=== PATIENT | female | born 2005 | race Caucasian/White ===

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

== ENCOUNTER 2025-02-08 16:10 | Emergency (ER) | payer OTHER, SELFPAY ==
--- NOTE | ~2025-02-08 | CT_ITS ---
CT abdomen pelvis w con Ordering provider: Zbigniew Funez III, DO History: 19 years Female with . epigastric pain . Comparison: June 25, 2022. Technique: CT abdomen and pelvis with IV and without oral contrast. Automated exposure control and it erative reconstruction technique were employed. The dose-length product was 895.82 mGy-cm. 100 mL Omn ipaque 350 was given IV. Findings: VISUALIZED LOWER CHEST: Normal. UPPER ABDOMINAL ORGANS: Liver: Normal. Gallbladder: Normal. Spleen: Normal. Stomach/duodenum: Normal. Pancreas: Slightly bulky body and tail of pancreas. Evaluation for pancreatitis is advised. Adrenals: Normal. Kidneys: Hypodensity in the right kidney upper pole most likely tiny cyst. Follow-up advised. PELVIC ORGANS: The bladder is underfilled. Retroverted uterus. BOWEL AND MESENTERY: Colon: No evidence of diverticulitis.. Normal appendix. Small Bowel: Normal. No obstruction. Peritoneum/mesentery: No free air or free fluid. Mesenteric lymph nodes with the largest measures 1.9 cm. RETROPERITONEUM: Normal aorta. No retroperitoneal lymphadenopathy. MUSCULOSKELETAL: Superficial soft tissues: Small fat-containing umbilical hernia. Otherwise, The superficial soft tiss ues are normal. Bones: Levoscoliosis. Otherwise, Normal spine. IMPRESSION: 1. No evidence of appendicitis, diverticulitis or intestinal obstruction. 2. Slightly prominent body and tail of the pancreas. Evaluation for pancreatitis advised. 3. Levoscoliosis. 4. Mesenteric lymphadenopathy. Reviewed, dictated and finalized at location A. IMPRESSION: 1. No evidence of appendicitis, diverticulitis or intestinal obstruction. 2. Slightly prominent body and tail of the pancreas. Evaluation for pancreatit is advised. 3. Levoscoliosis. 4. Mesenteric lymphadenopathy.
[2025-02-08 16:16] VITALS: BP 146/90; PULSE 85; RESP 16; TEMP 37; O2SAT 100
[2025-02-08 16:47] LABS: BEDSIDEPREGUCG Negative (Negative)
[2025-02-08 16:50] LABS: Basophils Percent Auto 0.3 % (0.2-1.2); Eosinophils Absolute Auto 0.1 K/mm3 (0-0.3); Eosinophils Percent Auto 1.7 % (0-4.4); Hematocrit 43.4 % (37.0-47.0); Hemoglobin 13.9 g/dL (12.0-15.0); Immature Granulocyte Absolute 0.02 K/mm3 (0.00-0.031); Immature Granulocyte Percent A 0.3 % (0-0.5); Lymphocytes Absolute Auto 1.74 K/mm3 (0.9-3.2); Lymphocytes Percent Auto 24.8 % (18.3-44.2); Mean Corpuscular Hemoglobin 28.5 pg (26-34); Mean Corpuscular Volume 88.9 fl (80-100); Mean Platelet Volume 9.3 fl (7.4-10.4); Monocytes Absolute Auto 0.7 K/mm3 (0.1-0.6); Monocytes Percent Auto 9.8 % (2.6-8.5); Neutrophils Absolute Auto 4.4 K/mm3 (1.3-6.7); Neutrophils Percent Auto 63.1 % (45.5-73.1); Platelet Count Result 359 k/mm3 (150-375); Red Blood Count 4.88 M/mm3 (4.2-5.4); Red Cell Distribution Width 13.3 % (11.5-14.5)
[2025-02-08 16:53] LABS: Add Urine Microscopic? NO; Appearance Urine Clear (Clear); Bilirubin Urine Negative (Negative); Blood Urine Negative (Negative); Color Urine Yellow (Yellow); Glucose Urine UA Negative (Negative); Ketones Urine Negative (Negative); Leukocyte Esterase Ur Negative LEU/UL (Negative); Nitrate Urine Negative (Negative); Protein Urine Negative (Negative); Specific Grav Ur 1.024 (1.001-1.035); Urobilinogen Urine 0.2 mg/dL (<2.0); pH Urine 5.5 (5.0-9.0)
[2025-02-08 17:00] LABS: Alanine Aminotransferase 15 U/L (6-35); Albumin Level 4.2 g/dL (3.7-5.6); Alkaline Phosphatase 149 U/L (45-116); Anion Gap 11 mmol/L (4-12); Aspartate Amino Transferase 25 U/L (14-36); Bilirubin,Total 0.3 mg/dL (0.2-1.3); Blood Urea Nitrogen 8 mg/dL (8-21); Calcium 9.5 mg/dL (8.9-10.7); Carbon Dioxide 20 mmol/L (22-30); Chloride 107 mmol/L (98-107); Estimated CRCL calculation 109 ml/min; Estimated Glomerular Filt Rate > 60; Glucose 120 mg/dL (65-110); Lipase 87 U/L (23-300); Potassium 4.1 mmol/L (3.4-5.0); Sodium 138 mmol/L (134-143); Total Protein 7.9 g/dL (6.3-8.6)
--- NOTE | 2025-02-08 17:10 | ED_ITS ---
HPI - Abdominal Pain General Chief Complaint: Abdominal Pain Stated Complaint: RLQ abd pain from UC Time Seen by Provider: 02/08/25 16:32 History of Present Illness HPI narrative: Pt presents with diarrhea for several days and upper epigastric abdominal pain. Pt denies vomiting or fever. Pt denies hematochezia. Pt denies urinary symptoms. Related Data Home Medications ?Medication ?Instructions ?Recorded ?Confirmed ?Last Taken ?Type escitalopram oxalate 10 mg tablet 10 mg PO DAILY 02/03/23 07/27/24 Unknown History drospirenone 3 mg-ethinyl 1 tablet PO DAILY 06/18/24 07/27/24 Unknown History estradiol 0.02 mg tablet Allergies Allergy/AdvReac Type Severity Reaction Status Date / Time ondansetron Allergy Intermediate HIVES Verified 12/11/24 08:29 gelatin AdvReac Intermediate ABDOMINAL Verified 12/11/24 08:29 PAIN pork derived (porcine) AdvReac Abdominal Verified 12/11/24 08:29 Pain Review of Systems 2 Review of Systems: All systems reviewed & are unremarkable except as noted in HPI and below PMFSH Past Medical History Medical History Anxiety and depression Tonsillitis GERD (gastroesophageal reflux disease) Cough variant asthma Social History Social History Living arrangements: with family Gender identity (if verbalized by the patient): Female Exam 2 Const: General: healthy appearing and no acute distress Nutritional Appearance: well nourished Orientation/consciousness: patient oriented x3 Limitations: no limitations HENMT: Head: normal to inspection Neck: Neck: normal visual inspection Resp: Effort & Inspection: normal respiratory effort Auscultation: clear to auscultation bilaterally Cardio: Rate: regular rate Rhythm: regular rhythm GI: GI Palp: Yes Soft to palpation and Yes Tenderness to palpation present (GI) (mild epigastric tenderness) Auscultation: normal bowel sounds Skin: General skin exam: normal color Rashes: no rashes Wounds: no wounds Neuro: General: patient oriented x3, moves all extremities, no meningeal signs, no focal motor deficits and CN's II-XI intact bilaterally Speech: n ormal speech Extrem: General: normal to inspection and no clubbing, cyanosis or edema Psych: Mental Status: mental status grossly normal Affect: normal affect Attitude: cooperative Course Vital Signs Vital signs: Vital Signs Temperature 98.6 F 02/08/25 16:16 Pulse Rate 85 02/08/25 16:16 Respiratory Rate 16 02/08/25 16:16 Blood Pressure 146/90 H 02/08/25 16:16 Pulse Oximetry 100 02/08/25 16:16 Oxygen Delivery Room Air 02/08/25 16:16 Temperature 98.6 F 02/08/25 16:16 Pulse Rate 85 02/08/25 16:16 Respiratory Rate 16 02/08/25 16:16 Blood Pressure 146/90 H 02/08/25 16:16 Pulse Oximetry 100 02/08/25 16:16 Oxygen Delivery Room Air 02/08/25 16:16 MDM - Abdominal Pain MDM Narrative Medical decision making narrative: pt has diarrhea and upper abd pain that is mild. likely gastroenteritis but will check labs and get CT to rule out enteritis or colitis or gallstone or pancreatitis. labs normal ct shows some abnormality at tail of pancreas but lipase normal so not pancreatitis so not clinical correlation. likely viral. Pt does not want antidiarrheal meds as is getting better. Lab Data 02/08/25 16:41 02/08/25 16:41 Labs: Lab Results 02/08/25 02/08/25 Range/Units 16:41 16:45 WBC 7.0 (4.5-10.0) K/mm3 RBC 4.88 (4.2-5.4) M/mm3 Hgb 13.9 (12.0-15.0) g/dL Hct 43.4 (37.0-47.0) % MCV 88.9 (80-100) fl MCH 28.5 (26-34) pg MCHC 32.0 (32-36) g/dl RDW 13.3 (11.5-14.5) % Plt Count 359 (150-375) k/mm3 MPV 9.3 (7.4-10.4) fl Immature Gran % (Auto) 0.3 (0-0.5) % Neut % (Auto) 63.1 (45.5-73.1) % Lymph % (Auto) 24.8 (18.3-44.2) % Chase % (Auto) 9.8 H (2.6-8.5) % Eos % (Auto) 1.7 (0-4.4) % Baso % (Auto) 0.3 (0.2-1.2) % Lymph # (Auto) 1.74 (0.9-3.2) K/mm3 Chase # (Auto) 0.7 H (0.1-0.6) K/mm3 Eos # (Auto) 0.1 (0-0.3) K/mm3 Baso # (Auto) 0.0 (0.0-0.1) K/mm3 Abs Immat Gran (auto) 0.02 (0.00-0.031) K/mm3 Absolute Neuts (auto) 4.4 (1.3-6.7) K/mm3 Absolute Nucleated RBC 0.000 (0.0-0.012) K/mm3 Nucleated RBC % 0.0 (0.0-0.2) % Sodium 138 (134-143) mmol/L Potassium 4.1 (3.4-5.0) mmol/L Chloride 107 (98-107) mmol/L Carbon Dioxide 20 L (22-30) mmol/L Anion Gap 11 (4-12) mmol/L BUN 8 (8-21) mg/dL Creatinine 0.76 (0.7-1.0) mg/dL Estim Creat Clear Calc 109 ml/min Estimated GFR > 60 (59 - ) Glucose 120 H (65-110) mg/dL Calcium 9.5 (8.9-10.7) mg/dL Total Bilirubin 0.3 (0.2-1.3) mg/dL AST 25 (14-36) U/L ALT 15 (6-35) U/L Alkaline Phosphatase 149 H (45-116) U/L Total Protein 7.9 (6.3-8.6) g/dL Albumin 4.2 (3.7-5.6) g/dL Lipase 87 (23-300) U/L Urine Color Yellow (Yellow) Urine Appearance Clear (Clear) Urine pH 5.5 (5.0-9.0) Ur Specific Peterson 1.024 (1.001-1.035) Urine Protein Negative (Negative) mg/dL Urine Glucose (UA) Negative (Negative) mg/dL Urine Ketones Negative (Negative) mg/dL Ur Blood (Man) Negative (Negative) Urine Nitrate Negative (Negative) Urine Bilirubin Negative (Negative) Urine Urobilinogen 0.2 (<2.0) mg/dL Leukocyte Esterase Rfl Negative (Negative) ALEJANDRO/UL POC Urine HCG, Qual Negative (Negative) Imaging Data Radiologist's impression: ITS Impressions Abdomen/Pelvis CT 02/08/25 17:41 IMPRESSION: 1. No evidence of appendicitis, diverticulitis or intestinal obstruction. 2. Slightly prominent body and tail of the pancreas. Evaluation for pancreatitis advised. 3. Levoscoliosis. 4. Mesenteric lymphadenopathy. Discharge Plan Discharge Clinical Impression: Gastroenteritis Patient Disposition: Home Condition: Improved Instructions: Antibiotic Form, Acute Diarrhea (ED) Patient Language: Martiniquais Prescriptions: No Action escitalopram oxalate 10 mg tablet 10 mg PO DAILY drospirenone-ethinyl estradiol 3-0.02 mg tablet 1 tablet PO DAILY Follow-up/Referrals: PHYSICIAN NOT ON STAFF,NONSTAFF [Primary Care Provider] -
--- OUTSIDE RECORDS SUMMARY | 2025-02-08 17:13 | XMS_ITS | Encounter Summary ---
Author Organization [facility] Address [address] [place] [address] Phone Care Team Providers Care Electrical Parts Reconditioner Name Role Phone Herman Sneed Primary Care Provider Clifton Malcolm MD Primary Care Provider [phone] Bijal Gomes MD Primary Care Provider [phone] Encounter Details Date Type Department Care Team (Late st Contact Info) Description 02/13/2017 Orders Only 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 us Historical Provider Final Res ult documented in this encounter Visit Diagnoses Not on filedocumented in this encounter Additional Health Concerns Infection Onset Date Last Indicated Resolved Time COVID: Suspected 07/30/2024 07/30/2024 07/30/2024 5:58 PM CENTRAL STORES ATTENDANT COVID: Suspected 07/30/2024 07/30/2024 07/31/2024 12:01 AM CENTRAL STORES ATTENDANT RSV, droplet 07/30/2024 07/30/2024 08/06/2024 3:05 AM CENTRAL STORES ATTENDANT COVID: Suspected 02/08/2025 02/08/2025 02/08/2025 3:13 PM CDT documented as of this encounter Care Teams Electrical Parts Reconditioner Relationship Specialty Start Date End Date Herman Sneed PCP - General 11/12/16 07/16/22 Clifton Scott MD [address] [address] PCP - General Family Medicine 07/17/22 02/09/23 Bijal Gomes MD [address] [place] [address] PCP - General Pediatrics 02/10/23 documented as of this encounter
--- OUTSIDE RECORDS SUMMARY | 2025-02-08 17:13 | XMS_ITS | Clinical Summary ---
Author Organization [facility] Address [address] [place] [address] Phone Care Team Providers Care Display Card Writer Name Role Phone Unavailable Primary Care Provider Unavailabl e Social History Tobacco Use Types Packs/Day Years Used Date Smoking Tobacco: Never Assessed Comments Unknown Sex and Gender Information Value Date Recorded Sex Assigned at Not on file Legal Sex Female 1:13 PM CDT Gender Identity Not on file Sexual Orientation Not on file Plan of Treatment Health Maintenance Due Date Last Done Comments Hepatitis B Immunization (1 of 3 - 3-dose series) 2005 Hepatitis C Virus (HCV) Screening 2005 Hepatitis A Immunization (1 of 2 - 2-dose series) 2006 Measles Mumps Rubella (MMR) Immunization (1 of 2 - Standard series) 2006 DTaP/Tdap/Td Immunization (1 - Tdap) 2012 Varicella Immunization (1 of 2 - 13+ 2-dose series) 2018 Human Papillomavirus (HPV) Immunization (1 - 3-dose series) 2020 Meningococcal B Immunization (1 of 2 - Standard) 2021 Meningococcal Immunization ( ACWY) (1 - 2-dose series) 2021 Influenza Immunization (#1) 2024 SARS-COV-2 Immunization ( - season) 2024 Respiratory Syncytial Virus (RSV) Immunization (Adult) (1 - 1-dose 75+ series) 2080 Pneumococcal Immunization Combined Aged Out No longer eligible based on patient's age to complete this topic Polio (IPV) Immunization Aged Out No longer eligible based on patient's age to complete this topic Rotavirus Immunization Aged Out No lo nger eligible based on patient's age to complete this topic
--- OUTSIDE RECORDS SUMMARY | 2025-02-08 17:13 | XMS_ITS | Encounter Summary ---
Author Organization [facility] Address [address] [place] [address] Care Team Providers Care Informatics Application Analyst Name Role Phone Bijal Gomes MD Primary Care Provider [phone] Encounter Details Date Type Department Care Team (Late st Contact Info) Description 08/17/2024 Telephone [facility] - Rheumatology [address] 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 Answer Date of Assessment Author No 12/22/2013 10:54 AM Soy Reyna RN * Is person blind or have serious difficulty seeing? Answer Date of Assessment Author No 12/22/2013 10:54 AM Soy Reyna RN * Does person have serious difficulty walking/climbing stairs? Answer Date of Assessment Author No 12/22/2013 10:54 AM CDT Silva, M ichelle R, RN * Does person have difficulty dressing/bathing? Answer Date of Assessment Author No 12/22/2013 10:54 AM Soy Reyna RN * Does person have difficulty doing errands alone? Answer Date of Assessment Author Yes 12/22/2013 10:54 AM Soy Reyna RN documented as of this encounter Mental Status * Does person have difficulty concentrating/remembering/making decisions? Answer Entry Date Author No 12/22/2013 10:54 AM Soy Reyna RN documented in this encounter Miscellaneous Notes * Telephone Encounter - Zamzam Mclean - 08/17/2024 1:54 PM CST Patients parents called to reschedule New Pt appt that was missed on 08/17/24. Told them next available is not till March. Very unhappy with that and are requesting a call from the office. Call back number is [phone] BILITATION CENTER MANAGER documented in this encounter Plan of Treatment Not on file documented as of this encounter Visit Diagnoses Not on filedocumented in this encounter Care Teams Informatics Application Analyst Relationship Specialty Start Date End Date Bijal Gomes MD [address] [place] [address] [place] [address] PCP - General Pediatrics 03/28/23 documented as of this encounter
--- OUTSIDE RECORDS SUMMARY | 2025-02-08 17:13 | XMS_ITS | Clinical Summary ---
Author Organization [facility] Address [address] [place] [address] Phone Care Team Providers Care Engraver Block Name Role Phone Deja Mejía MD Primary Care Provider [phone] Allergies Active Allergy Reactions Criticality Noted Date Comments Gelatin, Pork Abdominal Pain Low 11/16/2015 Ondansetron Rash Low 11/16/2015 Medications No known medications Social History Tobacco Use Types Packs/Day Years Used Date Smoking Tobacco: Never Alcohol Use Standard Drinks/Week Comments No 0 (1 standard drink = 0.6 oz pur e alcohol) Adolescent Education Answer Date Record ed Getting School Help Needed Not on file 04/05 Comments Unknown Sex and Gender Information Value Date Recorded Sex Assigned at Not on file Legal Sex Female 8:39 PM CDT Gender Identity Not on file Sexual Orientation Not on file Last Filed Vital Signs Vital Sign Reading Time Taken Comments Blood Pressure 128/71 11/16/2015 8:56 PM CDT Pulse - - Temperature 37.2 C (99 F) 11/17/2015 12:07 AM CDT Respiratory Rate 16 11/17/2015 12:07 AM CDT Oxygen Saturation 99% 11/17/2015 12:07 AM CDT Inhaled Oxygen Concentration - - Weight 32.8 kg (72 lb 5 oz) 11/16/2015 8:56 PM C DT Height - - Body Mass Index - - Plan of Treatment Health Maintenance Due Date Last Done Comments CHLAMYDIA SCREENING (ANNUAL) 11-24 YEARS 2016 HPV VACCINES (1 - 3-dose series) 2020 INFLUENZA VACCINE (#1) 2024 DTAP/TDAP/TD VACCINES (1 - Tdap) 2024 HEPATITIS B VACCINES (1 of 3 - 19+ 3-dose series) 09/02 Insurance [facility] Care Teams Engraver Block Relationship Specialty Start Date End Date Deja Mejía MD [address] [id number] PCP - General Pediatrics 11/16/15
--- OUTSIDE RECORDS SUMMARY | 2025-02-08 17:13 | XMS_ITS | Clinical Summary ---
Author Organization [facility] [employer] Plan Address [address] [place] [address] Care Team Providers Care Powder Coat Painter Name Role Phone Bijal Gomes MD Primary Care Provider Source Comments [facility] [employer] Plan,non-owned Affiliates and Associated Physician Practices is amultiple site organization consisting of ambulatory clinics and hospital sitesin [place], [place], [place] and [place]. This disclosure is being madepursuant to the Care Everywhere program and may not contain all information available regarding this patient. Last updated 18.[employer] Allergies Active Allergy Reactions Criticality Noted Date Comments Food Other 02/14/2010 Pork, gelatin causes vomiting Gelatin 04/28/2015 Ondansetron Urticaria 12/22/2013 Medications * Be aware that medications may not be up to date on this document. Alwaysverify current medications with the patient. 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 06/06/2021 Chronic headaches 09/11/2017 Resolved Problems Problem Noted Date Diagnosed Date Resolved Date Closed nondisplaced fracture of proximal phalanx of right thumb 06/16/2017 09/02/2024 Immunizations Immunization Administration Dates Next Due DTAP HIB IPV 08/12/2006,05/29/2006,2005 DTAP/HEP B/IPV 2005 DTAP/IPV 03/11/2011,02/02/2010 DTaP VACCINE IM (6wk-6yrs) 08/07/2007 FLU VACCINE TRI IIV3 SPLIT P F IM (FLUVIRIN) 09/05/2011,07/17/2011 HEP A PED/ADULT VACCINE 08/07/2007 HEP A PEDS 2 DOSE 02/02/2010 HEP B VACCINE, PED/ADOL 02/02/2010,08/12,05/29/2006,12/17 HIB VACCINE 10/21/2006 HIB-PRP-OMP 3 DOSE 2005 Human Papilloma Virus Nineva lent Vaccine 02/19/2018,04/08/2017 INFLUENZA VACCINE 08/22/2008,07/18/2008 INFLUENZA VACCINE, QUADR. (F LUZONE; FLULAVAL; FLUARIX; AFLURIA QUADRIVALENT; 6MO+), 0.5 ML (IIV4) 11/23/2014 MENINGOCOCCAL ACWY (MCV4P) VAC IM 04/08/2017 MMR 02/02/2010,10/21/2006 MMR/VARICELLA 03/11/2011 Meningococcal ACWY (Menquadfi) Vac IM 10/29/2022 Meningococcal B Recombinant 2 Dose, IM 3 PNEUMOCOCCAL PCV7 CONJ, PEDS 10/21/2006 PNEUMOCOCCAL PPV VACCINE 08/12/2006,05/29/2006,0 2005 TDAP (7yrs+) 04/08/2017 VARICELLA 08/07/2007 Family History Medical History Relation Name Comments Stomach ulcers Father Crohn's Disease Mother Arrhythmia Neg Hx CVA<55(male) Neg Hx CVA<65(female) Neg Hx Cardiomyopathy Neg Hx Congenital Heart defect Neg Hx Heart Surgery Neg Hx Long QT Syndrome Neg Hx WV<55(male) Neg Hx WV<65(female) Neg Hx Marfan Syndrome Neg Hx Pacemaker Neg Hx Sudd. 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 Gender Identity Not on file Sexual Orientation Not on file Last Filed Vital Signs Vital Sign Reading Time Taken Comments Blood Pressure 124/82 09/02/2024 1:13 PM SUPPLY CHAIN BUSINESS ANALYST Pulse 67 09/02/2024 1:13 PM SUPPLY CHAIN BUSINESS ANALYST Temperature 36.1 C (97 F) 09/02/2024 1:13 PM SUPPLY CHAIN BUSINESS ANALYST Respiratory Rate 16 09/02/2024 1:13 PM SUPPLY CHAIN BUSINESS ANALYST Oxygen Saturation 98% 09/02/2024 1:13 PM SUPPLY CHAIN BUSINESS ANALYST Inhaled Oxygen Concentration - - Weight 83.9 kg (185 lb) 09/02/2024 1:13 PM SUPPLY CHAIN BUSINESS ANALYST Height 158.8 cm (5' 2.5) 09/02/2024 1:13 PM SUPPLY CHAIN BUSINESS ANALYST Body Mass Index 33.3 09/02/2024 1:13 PM SUPPLY CHAIN BUSINESS ANALYST Body Mass Index Percentile 96.24% 09/02/2024 1:1 3 PM SUPPLY CHAIN BUSINESS ANALYST Growth Chart: CDC (Girls, 2- 20 Years) Plan of Treatment Health Maintenance Due Date Last Done Comments HIV SCREENING 2020 CHLAMYDIA/GONORRHEA SCREENING 2021 MENINGOCOCCAL (Group B) VACCINE SHARED DECISION-MAKING (2 of 2 - Bexsero SCDM 2-dose series) 04/28/2023 10/29/2022 HEPATITIS C SCREENING 09/25/2023 COVID-19 VACCINE ( - season) 2024 DEPRESSION SCREENING 09/01/2024 INFLUENZA VACCINE (Season Ended) 2025 11/23/2014, 09/05/2011, 07/17/2011, Additional history exists DTAP/TDAP/TD VACCINES (7 - Td or Tdap) 04/08/2027 04/08/2017, 03/11/2011, 02/02/2010, Additional history exists ZOSTER VACCINE (1 of 2) 2055 HIB VACCINE Completed 10/21/2006, 08/01, 05/29/2006, Additional history exists PNEUMOCOCCAL VACCINE Aged Out 10/21/2006, 08/12/2006, 05/29/2006, Additional history exists No longer eligible based on patient's age to complete this topic HEPATITIS B VACCINE Completed 02/02/2010, 08/12/2006, 05/29/2006, Additional history exists HPV VACCINE Completed 02/19/2018, 04/08/2017 MENINGOCOCCAL GROUPS A/C/Y/W VACCINE Completed 10/29/2022, 04/08/2017 Insurance [facility] * Guarantor: YAN PERES Account Type Relation to Patient Date of Phone Billing Address Behavior Health Mother [facility] * Guarantor: WILMER PERES Account Type Relation to Patient Date of Phone Billing Address Personal/Family Father Care Teams Powder Coat Painter Relationship Specialty Start Date End Date Bijal Gomes MD [address] [place] [address] [address] PCP - General Pediatrics 03/28/23
--- OUTSIDE RECORDS SUMMARY | 2025-02-08 17:14 | XMS_ITS | Referral Summary ---
Author Organization [facility] o[facility] Address [address] [place] [address] Care Team Providers Care Soccer Player Name Role Phone Bijal Gomes MD Primary Care Provider [phone] Encounters Date Type Department Care Team Description 02/08/2025 2:30 PM CDT Office Visit [facility] Medical [facility] Care at [address] [phone] Tiffany Ross NP Diarrhea, unspecified type (Primary Dx); Abdominal pain; Left lower quadrant abdominal tenderness without rebound tenderness; Right lower quadrant abdominal tenderness without rebound tenderness 01/07/2025 11:39 AM CDT - 01/07/2025 11:59 PM CDT Hospital Encounter [facility] Diagnostic Imaging Department [address] [place] [address] Adolescent idiopathic scoliosis of thoracic region Discharge Disposition: Discharge to home or self care 01/07/2025 11:40 AM CDT Office Visit [facility] [address]st [address] [place] [address] Sarath Saunders MD Adolescent idiopathic scoliosis of thoracic region (Primary Dx) from Last 3 Months Allergies Active Allergy Reactions Criticality Noted Date Comments Gelatin Stomach upset Low 04/28/2015 gi Ondansetron Hives,Rash,Urticaria Medium 12/22/2013 Hives Pork Stomach upset Low 07/14/2017 gi Pork Derived (Porcine) Stomach upset Low 02/12/2017 Medications clindamycin (CLEOCIN) 300 mg capsule 02/03/2023 Active escitalopram (LEXAPRO) 10 mg tablet 01/30/2023 Active fluticasone propionate (FLONASE) 50 mcg/actuation nasal spray 1 spray each nostril once daily 02/12/2017 Active fluticasone propionate (Flovent HFA) 44 mcg/actuation inhaler 2 times daily 02/13/2017 Active albuterol HFA (ProAir HFA) 90 mcg/actuation inhaler 2 puffs every 4 hours as needed and 10-15 minutes prior to exercise. 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 06/06/2021 02/13/2023 Chronic headaches 09/11/2017 02/13/2023 Closed nondisplaced fracture of proximal phalanx of right thumb 06/16/2017 02/13/2023 Allergic rhinitis due to mold 02/12/2017 Hay fever 02/12/2017 02/13/2023 Mild persistent asthma without complication 01/3002/13/2023 Snoring 02/12/2017 02/13/2023 Chest pain 01/29/2017 02/13/2023 Immunizations Immunization Administration Dates Next Due DTaP 08/07/2007 DTaP / Hep B / IPV 2005 DTaP / HiB / IPV 08/12/2006,05/29/2006, 6 DTaP / IPV 03/11/2011,02/02/2010 HPV9 02/19/2018,04/08/2017 Hep A, Ped Unspecified 02/02/2010 Hep A, Unspecified 08/07/2007 Hep B, Adolescent or Pediatric 0,08/12/2006,05/29/2006,12/17 HiB 10/21/2006 Hib (PRP-OMP) 2005 Influenza, Quadrivalent, Spl it, Preservative Free, Intramuscular 11/23/2014 Influenza, Trivalent, Preser vative Free, Intramuscular 09/05/2011,07/17/2011 Influenza, Unspecified 08/22/2008,07/18/2008 MMR 02/02/2010,10/21/2006 MMRV 03/11/2011 Meningococcal A,C,W,Y-TT (Ak a Menquadfi) 10/29/2022 Meningococcal B, OMV (Bexsero) 10/29/2022 Meningococcal MCV4P (Menactra) 04/08/2017 Pneumococcal Conjugate 7-Valent 10/21/2006 Pneumococcal, Unspecified 08/12/2006,05/29/2006, 2005 Tdap 04/08/2017 Varicella 08/07/2007 Social History Tobacco Use Types Packs/Day Years Used Date Smoking Tobacco: Every Day Vaping Comments Unknown Sex and Gender Information Value Date Recorded Sex Assigned at Not on file Legal 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 Gender Identity Not on file Sexual Orientation Not on file Last Filed Vital Signs Vital Sign Reading Time Taken Comments Blood Pressure 130/83 02/08/2025 2:48 PM CDT Pulse 88 02/08/2025 2:48 PM CDT Temperature 36.4 C (97.5 F) 02/08/2025 2:48 PM CDT Respiratory Rate 18 02/08/2025 2:48 PM CDT Oxygen Saturation 97% 02/08/2025 2:48 PM CDT Inhaled Oxygen Concentration - - Weight 89.1 kg (196 lb 8 oz) 02/08/2025 2:48 PM CDT Height 160 cm (5' 2.99) 02/08/2025 2:48 PM CDT Body Mass Index 34.82 02/08/2025 2:48 PM CDT Plan of Treatment Not on file Procedures Procedure Name Priority Date/Time Associated Diagnosis Comments POC INFLUENZA A/B, COVID-19 ANTIGEN Routine 02/08/2025 3:12 PM CDT Diarrhea, unspecified type XR SPINE SCOLIOSIS AP 1 VIEW Schedule Routine, Read Routine (OP Routine) 01/07/2025 11:44 AM CDT Adolescent idiopathic scoliosis of thoracic region from Last 3 Months Results * POC Influenza A/B, COVID-19 antigen (02/08/2025 3:12 PM CDT) Influenza A Ag, POC Negative Negative [facility] Influenza B Ag, POC Negative Negative [facility] COVID-19 Ag POC Presumptive Negative Presumptive Negative, Invalid [facility] Nasal 02/08/2025 3:12 PM CDT Tiffany Ross NP POINT OF CARE TEST ORDERABLES F inal Result [facility] [place] [address], [facility] * XR Spine Scoliosis 1 View (01/07/2025 11:44 AM CDT) Anatomical Region Laterality Modality Spine N/A Computed Radiogr aphy 01/07/2025 12:1 6 PM CDT Impressions 01/07/2025 12:16 PM CDT No significant change of moderate S-shaped thoracolumbar scoliosis. Electronically signed by: Gideon Rendon M.D. Narrative 01/07/2025 12:16 PM CDT EXAMINATION: XR SPINE SCOLIOSIS AP 1 VIEW HISTORY: 19 years old Female.Follow-up scoliosis. COMPARISON: 02/04/2023 scoliosis radiographs. FINDINGS: AP radiographs of the thoracic and lumbar spine are submitted for interpretation. Patient is imaged in standing position. Patient is not wearing a brace. There are 12 rib bearing thoracic type vertebrae, and 5 non-rib bearing lumbar-type vertebrae. No fusion or segmentation anomalies are seen. There is no significant change of moderate thoracic dextroscoliosis or compensatory thoracolumbar levoscoliosis centered at T8 and L2-L3 respectively. There is no significant pelvic tilt. There is mild leftward coronal truncal imbalance. There is no evidence of any fracture or dislocation. The visible lungs are clear. The cardiac silhouette is normal in size. There is a normal bowel gas pattern in the visible abdomen. Procedure Note Gideon Rendon IV, MD - 01/07/2025 EXAMINATION: XR SPINE SCOLIOSIS AP 1 VIEW HISTORY: 19 years old Female.Follow-up scoliosis. COMPARISON: 02/04/2023 scoliosis radiographs. FINDINGS: AP radiographs of the thoracic and lumbar spine are submitted for interpretation. Patient is imaged in standing position. Patient is not wearing a brace. There are 12 rib bearing thoracic type vertebrae, and 5 non-rib bearing lumbar-type vertebrae. No fusion or segmentation anomalies are seen. There is no significant change of moderate thoracic dextroscoliosis or compensatory thoracolumbar levoscoliosis centered at T8 and L2-L3 respectively. There is no significant pelvic tilt. There is mild leftward coronal truncal imbalance. There is no evidence of any fracture or dislocation. The visible lungs are clear. The cardiac silhouette is normal in size. There is a normal bowel gas pattern in the visible abdomen. IMPRESSION: No significant change of moderate S-shaped thoracolumbar scoliosis. Electronically signed by: Gideon Rendon M.D. Sarath Saunders MD IMG XR PROCEDURES Final Res ult from Last 3 Months Insurance [facility] Care Teams Soccer Player Relationship Specialty Start Date End Date Bijal Gomes MD [address] [place] [address] PCP - General Pediatrics 02/10/23
--- OUTSIDE RECORDS SUMMARY | 2025-02-08 17:14 | XMS_ITS | Clinical Summary ---
Author Organization [facility] Address [address] [place] [address] Care Team Providers Care Social Services Director Name Role Phone Bijal Gomes MD Primary Care Provider [phone] Allergies Active Allergy Reactions Criticality Noted Date [...] Snoring 02/12/2017 02/13/2023 Chest pain 01/29/2017 02/13/2023 Encounters Date Type Department Care Team Description 02/08/2025 2:30 PM CDT Office Visit [facility]ient Care at [address] [address] Tiffany Ross NP Diarrhea, unspecified type (Primary Dx); Abdominal pain; Left lower quadrant abdominal tenderness without rebound tenderness; Right lower quadrant abdominal tenderness without rebound tenderness 01/07/2025 11:40 AM CDT Office Visit [facility] [address] 1st [address] [place] [address] Sarath Saunders MD Adolescent idiopathic scoliosis of thoracic region (Primary Dx) 01/07/2025 11:39 AM CDT - 01/07/2025 11:59 PM CDT Hospital Encounter [facility] Diagnostic Imaging Department [id number] [place] [phone] Adolescent idiopathic scoliosis of thoracic region Discharge Disposition: Discharge to home or self care from Last 3 Months Immunizations Immunization Administration Dates Next Due DTaP [...] on file 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 Gender Identity Not on file Sexual Orientation Not on file Obstetrics History Growth Chart Information Age Height Weight Pedcgf-yyz-qhfy th Percentile BMI Percentile Head Circum Head Circum Percentile Date 19 years 160 cm (5' 2.99) 89.1 kg (196 lb 8 oz) 96.80%* 2024 19 years 160 cm (5' 2.99) 88 kg (194 lb 0.1 oz) 96.63%* 2024 18 years 162.6 cm (5' 4.02) 84.7 kg (186 lb 11.2 oz) 95.62%* 2023 17 years 162.6 cm (5' 4) 83 kg (183 lb) 95.88%* 2022 11 years 44.6 kg (98 lb 5.2 oz) 2016 11 years 43.4 kg (95 lb 10.9 oz) 2016 11 years 41.1 kg (90 lb 9.8 oz) 2016 11 years 141 cm (4' 7.51) 37.3 kg (82 lb 3.7 oz) 64.98%* 2016 11 years 36.9 kg (81 lb 5.6 oz) 2016 8 years 28.1 kg (62 lb) 2013 7 years 25.6 kg (56 lb 7 oz) 2012 * [facility] (Girls, 2-20 Years) Last Filed Vital Signs Vital Sign Reading [...] 02/08/2025 2:48 PM CDT Plan of Treatment Health Maintenance Due Date Last Done Comments Depression Screening 2005 Hepatitis C Screening 2005 Pneumococcal vaccine <65 (1 of 1 - PPSV23) 2011 10/21/2006, 08/12/2006, 05/29/2006, Additional history exists Meningococcal B Vaccine (2 o f 2 - Bexsero SCDM 2-dose series) 04/28/2023 10/29/2022 Regular Well Visit/Exam 18-64 2023 Influenza Vaccine (Season Ended) 2025 11/23/2014, 09/05/2011, 07/17/2011, Additional history exists DTaP/Tdap/Td Vaccine (7 - Td or Tdap) 04/08/2027 04/08/2017, 03/11/2011, 02/02/2010, Additional history exists Hepatitis B Screening Completed 02/02/2010 , 08/12/2006, 05/29/2006, Additional history exists Varicella Vaccines Completed 03/11/2011, 08/07/2007 HPV Vaccines Completed 02/19/2018, 04/08/2017 Meningococcal Vaccine Completed 10/29/2022, 017 Procedures Procedure Name Priority Date/Time Associated Diagnosis [...] CDT) Influenza A Ag, POC Negative Negative [facility] Influenza B Ag, POC Negative Negative [facility] COVID-19 Ag POC Presumptive Negative Presumptive Negative, Invalid [facility] Nasal 02/08/2025 3:12 PM CDT us Tiffany Ross NP POINT OF CARE TEST ORDERABLES F inal Result Performing Organization Address City/State/[facility] Co de Phone Number [facility] ED[facility] [address] [place] [address] * XR Spine Scoliosis 1 View (01/07/2025 [...] Res ult from Last 3 Months Insurance [id number] [place] [address] [facility] Care Teams Social Services Director Relationship Specialty Start Date End Date Bijal Gomes MD [address] [place] [address] PCP - General Pediatrics 02/10/23
--- OUTSIDE RECORDS SUMMARY | 2025-02-08 17:14 | XMS_ITS | Encounter Summary ---
Author Organization [facility] Healthcare Address [address] [place] [address] Care Team Providers Care Resin Remover Name Role Phone Bijal Gomes MD Primary Care Provider [phone] [phone] Reason for Visit * Reason Comments Diarrhea Started Friday, li quid, headache, nausea, stomach cramps, cold sweats, Encounter Details Date Type Department Care Team (Late st Contact Info) Description 02/08/2025 2:30 PM CDT Office Visit [facility] Medical Group Convenient Care at [place] [address] [place] [address] Tiffany Ross NP [address] [place] [address] [address] [place] [address] Diarrhea, unspecified type (Primary Dx); Abdominal pain; Left lower quadrant abdominal tenderness without rebound tenderness; Right lower quadrant abdominal tenderness without rebound tenderness Social History Tobacco Use Types Packs/Day Years Used Date Smoking Tobacco: Every Day Vaping Comments Unknown Sex and Gender Information Value Date Recorded Sex Assigned at Not on file 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 Gender Identity Not on file Sexual Orientation Not on file documented as of this encounter Last Filed Vital Signs Vital Sign Reading [...] Mass Index 34.82 02/08/2025 2:48 PM CDT documented in this encounter Plan of Treatment Not on file documented as of this encounter Procedures Procedure Name Priority Date/Time Associated Diagnosis Comments POC INFLUENZA A/B, COVID-19 ANTIGEN Routine 02/08/2025 3:12 PM CDT Diarrhea, unspecified type documented in this encounter Results * POC Influenza A/B, COVID-19 antigen (02/08/2025 3:12 PM CDT) Influenza A Ag, POC Negative Negative [facility] Influenza B Ag, POC Negative Negative [facility] COVID-19 Ag POC Presumptive Negative Presumptive Negative, Invalid [facility] Nasal 02/08/2025 3:12 PM CDT Tiffany Ross NP POINT OF CARE TEST ORDERABLES F inal Result [facility] ED[facility] [address] [place] [address], [facility] documented in this encounter Visit Diagnoses Diagnosis Diarrhea, unspecified type- Primary Abdominal pain Abdominal pain, unspecified site Left lower quadrant abdominal tenderness without rebound tenderness Right lower quadrant abdominal tenderness without rebound tenderness documented in this encounter Historical Medications * This list may reflect changes made after this encounter. Medication Sig Dispense Quantity Refills Last Filled Start D ate End Date drospirenone-ethinyl estradioL (DAWNA ANDERSON) 3-0.02 mg per tablet 07/18/2024 added in this encounter Care Teams Resin Remover Relationship Specialty Start Date End Date Bijal Gomes MD [address] [place] [address] PCP - General Pediatrics 02/10/23 documented as of this encounter
[2025-02-08 18:40] VITALS: BP 129/88; PULSE 81; RESP 20; O2SAT 100
== END 2025-02-08 18:42 | disposition home or self-care (01) ==
PROVIDERS: Emergency Provider Emergency Medicine
DX: K52.9 Noninfective gastroenteritis and colitis, unspecified (principal)
CPT/HCPCS: 36415; 74177; 80053; 81003; 81025; 83690; 85025; 99284; Q9967

== ENCOUNTER 2025-04-19 10:00 | Emergency (ER) | payer OTHER, SELFPAY ==
[2025-04-19 10:05] VITALS: BP 123/69; PULSE 66; RESP 16; TEMP 36.3; O2SAT 98
--- NOTE | 2025-04-19 10:17 | ED_ITS ---
HPI - General Adult General Chief complaint: Head Injury Stated complaint: Nausea/Headache Time Seen by Provider: 04/19/25 10:17 Source: patient, RN notes reviewed and old records reviewed Mode of arrival: ambulatory Limitations: no limitations History of Present Illness HPI narrative: 19-year-old female presents to the [facility] with complaints of a frontal headache a nausea. States that she bumped the back of her head on a counter a couple of days ago. Did take ibuprofen last night. No other treatment prior to arrival. Denies any blurry vision or change in vision. No neurologic deficits Walks with normal gait Denies having the worst headache of her life Treatments prior to arrival: NSAID (x1) Related Data Home Medications ?Medication ?Instructions ?Recorded ?Confirmed ?Last Taken ?Type escitalopram oxalate 10 mg tablet 10 mg PO DAILY 02/0307/27/24 Unknown History drospirenone 3 mg-ethinyl 1 tablet PO DAILY 06/18/24 1 09/26/23 Unknown History estradiol 0.02 mg tablet Allergies Allergy/AdvReac Type Severity Reaction Status Date / Time ondansetron Allergy Intermediate HIVES Verified 04/19/25 10:33 gelatin AdvReac Intermediate ABDOMINAL Verified 04/19/25 10:33 PAIN pork derived (porcine) AdvReac Abdominal Verified 04/19/25 10:33 Pain Review of Systems Review of Systems: All systems reviewed & are unremarkable except as noted in HPI and below Constitutional: Constitutional: Reports as per HPI, Denies fatigue, Denies fever(s) and Reports headache(s) ENT: Reports system reviewed and no additional complaints, except as documented Cardiovascular: Cardiovascular: Reports no additional cardiovascular complaints, Denies chest pain and Denies dyspnea Respiratory: Respiratory: Reports no additional respiratory complaints, Denies chest congestion, Denies cough and Denies dyspnea Musculoskeletal: Musculoskeletal: Reports no additional musculoskeletal complaints Integumentary/Breasts: Skin/Breast: Reports system reviewed and no additional complaints, except as docu [facility] Past Medical History Medical History Anxiety and depression Tonsillitis GERD (gastroesophageal reflux disease) Cough variant asthma Social History Social History Living arrangements: with family Gender identity (if verbalized by the patient): Female Comments At the time of my signature, I reviewed and agree with the nursing past medical, surgical, social, and family history. There is no relevant family history pertinent to the patient complaint. Exam Const: General: cooperative, healthy appearing, comfortable, no acute distress, well developed, alert and well nourished Nutritional Appearance: well nourished Orientation/consciousness: patient oriented x3 Limitations: no limitations HENMT: Head: normal to inspection Ears: hearing grossly normal bilaterally, external ears normal, TM's normal bilaterally, EAC's normal, mastoids normal and no periauricular adenopathy Face/Nose/Sinus: Normal external nose present Mouth: Yes Normal oral and palatal mucosa present, Yes lip normal, Yes tongue normal and Yes moist mucous membranes Throat: posterior oropharynx normal, uvula midline and no uvular edema Eyes: General: appearance normal, both eyes and all related structures Alignment and Position: alignment normal Neck: Neck: normal visual inspection, full ROM, no lymphadenopathy, no meningeal signs and trachea midline Chest: Chest palpation & inspection: normal inspection of the chest Resp: Effort & Inspection: normal respiratory effort and able to speak in complete sentences Auscultation: clear to auscultation bilaterally, no crackles, no rales, no rhonchi and no wheezes Cardio: Rate: regular rate Back/Spine/Pelvis: Back: no CVA tenderness and No back tenderness Cervical Spine: normal cervical lordosis, cervical ROM normal, No cervical muscular t enderness and No Cervical spine tenderness Thoracic/Lumbar Spine: No thoracic spinal tenderness and No lumbar spinal tenderness Skin: General skin exam: normal color and no rashes or lesions noted Neuro: General: patient oriented x3, gait normal, moves all extremities and no meningeal signs Cognition (Neuro): normal cognition Speech: normal speech Gait exam (Neuro): Normal gait present Motor exam (neuro): 5/5 motor strength present throughout and Pronator motor function not present Extrem: General: normal to inspection, full ROM, capillary refill normal and normal gait Psych: Appearance: grossly normal and well kempt Mental Status: mental status grossly normal Speech and movement: Normal speech and movement present and Clear speech present Affect: normal affect Attitude: cooperative Course Course Level of Care: Express Care Visit Vital Signs Vital signs: Vital Signs Temperature 97.3 F L 04/19/25 10:05 Pulse Rate 66 04/19/25 10:05 Respiratory Rate 16 08/19/25 10:05 Blood Pressure 123/69 04/19/25 10:05 Pulse Oximetry 98 04/19/25 10:05 Temperature 97.3 F L 04/19/25 10:05 Pulse Rate 66 04/19/25 10:05 Respiratory Rate 16 04/19/25 10:05 Blood Pressure 123/69 04/19/25 10:05 Pulse Oximetry 98 04/19/25 10:05 Reviewed Medical Decision Making MDM Narrative Medical decision making narrative: Patient sitting comfortably in exam room. Nontoxic, vitals stable. Patient in no acute distress Patient presents with headache and nausea after hitting the back of her head on a shelf. No neurologic deficits. No change in vision or blurry vision. No neck tenderness. [place] CT head injury. Patient is over the age of 18, not on blood thinners, no seizures. GCS 2 days post injury is 15. No suspect for skull fractures. Patient has had nausea without vomiting. Discussed with patient signs and symptoms proceed to the emergency room which she verbalized understanding Discharge instructions reviewed with patient, as well as provided in writing per nursing staff. The instructions also include specific and strict return/GO TO THE ER as well as f/u information. All questions have been answered, and the patient deny any further questions with discharge and discharge plan. Some parts of this dictation were generated by voice recognition software and may contain typographical and/or grammatical inaccuracies. Differential Diagnosis Differential Diagnosis: Concussion, minor head injury, Medical Records Medical records reviewed: Yes I reviewed the external patient's medical records. Vital Signs Vital Signs: Vital Signs Temperature 97.3 F L 04/19/25 10:05 Pulse Rate 66 04/19/25 10:05 Respiratory Rate 16 04/19/25 10:05 Blood Pressure 123/69 04/19/25 10:05 Pulse Oximetry 98 04/19/25 10:05 Temperature 97.3 F L 04/19/25 10:05 Pulse Rate 66 04/19/25 10:05 Respiratory Rate 16 04/19/25 10:05 Blood Pressure 123/69 04/19/25 10:05 Pulse Oximetry 98 04/19/25 10:05 Reviewed Lab Data Lab results reviewed: Yes I reviewed the patient's lab results. Labs: Reviewed Critical Care Time Critical Care Time Critical Care Time: No Discharge Plan Discharge Clinical Impression: Minor traumatic injury of head with normal mental status Patient Disposition: Home Condition: Stable Instructions: Concussion (ED), Head Injury (ED) Additional Instructions: Take Tylenol as needed for pain. Rest in a cool dark room for the next 24 hours. Avoid any type of screen time especially cell phones or computer s creens. If you developed the worst headache of your life, vomiting, severe nausea, new or worsening vision changes go directly to the nearest emergency room for further evaluation, testing. Patient Language: French Prescriptions: No Action escitalopram oxalate 10 mg tablet 10 mg PO DAILY drospirenone-ethinyl estradiol 3-0.02 mg tablet 1 tablet PO DAILY Follow-up/Referrals: PHYSICIAN,PRINT PRODUCTION ASSOCIATE [Primary Care Provider, Internal Medicine] Stand Alone Forms: Work/School Release IP Time of Disposition: 10:27
== END 2025-04-19 10:30 | disposition home or self-care (01) ==
PROVIDERS: Emergency Provider Nurse Practitioner
DX: S09.90XA Unspecified injury of head, initial encounter (principal); W22.09XA Striking against other stationary object, initial encounter; K21.9 Gastro-esophageal reflux disease without esophagitis; F41.9 Anxiety disorder, unspecified; F32.A Depression, unspecified
CPT/HCPCS: 99213; G0463

== ENCOUNTER 2025-04-26 17:10 | Emergency (ER) | payer OTHER, SELFPAY ==
--- NOTE | 2025-04-26 17:13 | ED_ITS ---
HPI - URI/Sore Throat General Chief Complaint: Upper Respiratory Infection Stated Complaint: Sore Throat/Headache Time Seen by Provider: 04/26/25 17:26 Source: patient Mode of arrival: ambulatory Limitations: no limitations History of Present Illness HPI Narrative: Maricarmen is a 19-year-old female patient presenting to the clinic today with complaints of sore throat, headache, nasal congestion, green nasal drainage, body aches, feeling feverish, and diarrhea times 3-4 days. Denies any shortness of breath or chest pain. Rates her pain currently a 7/10 under sore throat. Has been taking ibuprofen for her symptoms. Related Data Home Medications ?Medication ?Instructions ?Recorded ?Confirmed ?Last Taken ?Type escitalopram oxalate 10 mg tablet 10 mg PO DAILY 02/0307/27/24 Unknown History drospirenone 3 mg-ethinyl 1 tablet PO DAILY 06/18/24 1 09/26/23 Unknown History estradiol 0.02 mg tablet Allergies Allergy/AdvReac Type Severity Reaction Status Date / Time ondansetron Allergy Intermediate HIVES Verified 04/19/25 10:33 gelatin AdvReac Intermediate ABDOMINAL Verified 04/19/25 10:33 PAIN pork derived (porcine) AdvReac Abdominal Verified 04/19/25 10:33 Pain Review of Systems Review of Systems: Pertinent positives per HPI. Patient denies any rash, visual changes, dizziness, shortness of breath, chest pain, palpitations, nausea, vomiting,constipation, abdominal pain, or any urinary issues. [facility] Past Medical History Medical History Anxiety and depression Tonsillitis GERD (gastroesophageal reflux disease) Cough variant asthma Social History Social History Living arrangements: with family Gender identity (if verbalized by the patient): Female Comments At the time of my signature, I reviewed and agree with the nursing past medical, surgical, social, and family history. There is no relevant family history pertinent to the patient complaint. Exam Narrative: General: Well-developed, obese, in no apparent distress Head: Normocephalic, atraumatic Eyes: Pupils equally round and reactive to light bilaterally, EOM intact, sclera and conjunctive clear, no discharge, lids normal Ears: TMs intact and congested, ear canals clear, no drainage, grossly hearing normal. Nose: Nares patent, clear nasal discharge, monitor inflammation, no sinus tenderness. Mouth: Oral pharynx red with tonsillar enlargement without lesions or masses, good dentition, MMM. Neck: Supple, trachea midline, no enlargement of anterior or posterior cervical nodes, no thyroid masses or goiter palpable. Cardio: Regular rate and rhythm, s1 and s2 normal, no murmur appreciated. Resp: Clear to auscultation bilaterally, no rhonchi, rales, wheezing or rubs Course Course Emergency Course: Portions of this record may have been created with voice recognition software. Level of Care: Express Care Visit Vital Signs Vital signs: Vital Signs Temperature 37.7 C H 04/26/25 17:19 Pulse Rate 106 H 04/26/25 17:19 Respiratory Rate 18 04/26/25 17:19 Blood Pressure 142/93 H 04/26/25 17:19 Pulse Oximetry 100 04/26/25 17:19 Temperature 37.7 C H 04/26/25 17:19 Pulse Rate 106 H 04/26/25 17:19 Respiratory Rate 18 04/26/25 17:19 Blood Pressure 142/93 H 04/26/25 17:19 Pulse Oximetry 100 04/26/25 17:19 Vital signs reviewed MDM - URI/Sore Throat MDM Narrative Medical decision making narrative: At the time of visit patient is resting comfortably on the exam table. Patient appears to be nontoxic. Complaints of sore throat, headache, nasal congestion, green nasal drainage, body aches, feeling feverish, and diarrhea times 3-4 days. Denies any shortness of breath or chest pain. Rates her pain currently a 7/10- sore throat. Has been taking ibuprofen for her symptoms. On exam patient has bilateral TM congestion, oral pharynx red with mild tonsillar enlargement without exudate, clear nasal drainage with moderate inflammation. COVID, influenza, and strep test were ordered. Labs: COVID, influenza, and strep test were all negative in the clinic today. We will send strep for culture. Plan: I suspect patient has URI/pharyngitis/viral syndrome. Work note was given. Supportive measures were discussed with the patient and they voiced understanding discharge instructions and agrees to treatment plan. Return precautions reviewed Differential Diagnosis Differential diagnosis: Likely upper respiratory infection, otitis media, sinusitis, viral infection, bronchitis, influenza, pharyngitis and other (COVID) Lab Data Labs: Lab Results 04/26/25 04/26/25 Range/Units 17:30 17:42 POC Influenza A Ag Negative (Negative) POC Influenza B Ag Negative (Negative) POC SARS CoV-2 Ag Negative (Negative) POC Grp A Strep Screen Negative (Negative) Discharge Plan Discharge Clinical Impression: Viral infection Upper respiratory infection Qualifiers: URI type: unspecified URI Qualified Code(s): J06.9 - Acute upper respiratory infection, unspecified Pharyngitis Qualifiers: Pharyngitis/tonsillitis etiology: unspecified etiology Qualified Code(s): J02.9 - Acute pharyngitis, unspecified Patient Disposition: Home Condition: Stable Instructions: Antibiotic Form, Pharyngitis (ED), Viral Syndrome (ED), Cold Symptoms (ED) Additional Instructions: Strep, COVID, and influenza testing was all negative in the clinic today. We will send strep for culture if this comes back positive we will contact you in place you on antibiotics at that time. Increase fluids and stay well hydrated May take Tylenol or motrin as directed on bottle for pain/fever May use Flonase 1 spray in each nare daily May take OTC antihistamines such as Zyrtec or Claritin daily as directed on bottle May apply Vicks vapor rub to chest to open sinuses Sinus rinses for congestion Cepacol spray, cough drops, throat lozenges, warm tea with honey/lemon, gargle salt water to soothe throat May take Imodium as needed for diarrhea as long as there is no blood in your stool. BRAT diet for diarrhea Clear liquids x 24 hours then advance as tolerated for nausea/vomiting Go to the ED if you develop a worsening in your condition- high fever not controlled by Tylenol or Motrin, dehydration, weakness, lethargy, shortness of breath, or chest pain. Follow up with your PCP in 3-5 days if symptoms persist. Patient Language: Armenian Prescriptions: No Action escitalopram oxalate 10 mg tablet 10 mg PO DAILY drospirenone-ethinyl estradiol 3-0.02 mg tablet 1 tablet PO DAILY Follow-up/Referrals: PHYSICIAN,ELECTROENCEPHALOGRAPH TECHNICIAN [Primary Care Provider, Internal Medicine] Stand Alone Forms: Work/School Release IP Time of Disposition: 17:45 [facility] Documentation ED NIHSS nursing documentation: reviewed/agree
[2025-04-26 17:19] VITALS: BP 142/93; PULSE 106; RESP 18; TEMP 37.7; O2SAT 100
[2025-04-26 17:32] LABS: EDSTREPNEGPOS1 Negative (Negative)
[2025-04-26 17:43] LABS: EDCOVIDSCREEN Negative (Negative); EDINFLUASCREEN Negative (Negative); EDINFLUBSCREEN Negative (Negative)
== END 2025-04-26 17:46 | disposition home or self-care (01) ==
PROVIDERS: Emergency Provider Nurse Practitioner Family
DX: J06.9 Acute upper respiratory infection, unspecified (principal); B34.9 Viral infection, unspecified; J02.9 Acute pharyngitis, unspecified; F41.8 Other specified anxiety disorders; K21.9 Gastro-esophageal reflux disease without esophagitis; Z20.822 Contact with and (suspected) exposure to COVID-19
CPT/HCPCS: 87426; 87804; 87880; 99213; G0463

== ENCOUNTER 2025-08-05 12:58 | Emergency (ER) | payer OTHER, SELFPAY ==
[2025-08-05 13:12] VITALS: BP 133/83; PULSE 82; RESP 18; TEMP 37.3; O2SAT 100
[2025-08-05 13:26] LABS: EDSTREPNEGPOS1 Negative (Negative)
--- NOTE | 2025-08-05 13:52 | ED.URI ---
HPI - URI/Sore Throat General Chief Complaint: Upper Respiratory Infection Stated Complaint: SORE THROAT/NAUSEA/HEADACHE Time Seen by Provider: 08/05/25 13:45 Source: patient and RN notes reviewed Mode of arrival: ambulatory Limitations: no limitations History of Present Illness HPI Narrative: 19-year-old female presents Express Care complaining of sore throat for 2-3 days. Patient says is getting worse. She reports postnasal drip as well. Patient denies any other upper respiratory symptoms, fevers, body aches, chills, nausea vomiting, diarrhea, chest pain, difficulty breathing. Patient is in trying [id number] help with symptoms. Patient denies any significant past medical history. Related Data Home Medications ?Medication ?Instructions ?Recorded ?Confirmed ?Last Taken ?Type drospirenone 3 mg-ethinyl 1 tablet PO DAILY 06/18/24 07/27/24 Unknown History estradiol 0.02 mg tablet aripiprazole 5 mg tablet mg 08/05/25 Unknown History fluoxetine 10 mg tablet mg 08/05/25 Unknown History Allergies Allergy/AdvReac Type Severity Reaction Status Date / Time ondansetron Allergy Intermediate HIVES Verified 08/05/25 13:18 gelatin AdvReac Intermediate ABDOMINAL Verified 08/05/25 13:18 PAIN pork derived (porcine) AdvReac Abdominal Verified 08/05/25 13:18 Pain Review of Systems Review of Systems: CONSTITUTIONAL: Denies fever, chills, body aches, or sweats. EYES: Denies visual changes, redness, or discharge. ENT: Positive for rhinorrhea, congestion, sore throat, or otalgia. CARDIOVASCULAR: Denies chest pain, palpitations, or edema. RESPIRATORY: Positive for cough. Negative for dyspnea. GASTROINTESTINAL: Denies abdominal pain, nausea, vomiting, or diarrhea. GENITOURINARY: Denies dysuria or hematuria. SKIN: Denies rash or itching. MUSCULOSKELETAL: Denies back pain, joint pain, or myalgia. NEUROLOGIC: Denies headache, numbness, or weakness. PSYCHIATRIC: Denies anxiety or depression. All other systems reviewed are negative, except as documented in HPI. [facility] Past Medical History Medical History Anxiety and depression Tonsillitis GERD (gastroesophageal reflux disease) Cough variant asthma Social History Social History Living arrangements: with family Gender identity (if verbalized by the patient): Female Comments At the time of my signature, I reviewed and agree with the nursing past medical, surgical, social, and family history. There is no relevant family history pertinent to the patient complaint. Exam Narrative: GENERAL: This is a well-nourished, well-developed adult, in no apparent distress. They are non ill-appearing, nontoxic appearing. HEAD: normocephalic, atraumatic. EYES: Sclera clear/white. Vision is grossly intact. Conjunctiva normal bilaterally. Extraocular movements intact. EARS: External ears normal, auditory canals clear and without drainage, TMs without erythema or perforation. Hearing grossly intact. NOSE: External nose normal with no obvious nasal discharge, nasal turbinates without redness or swelling, no rhinorrhea. THROAT: Mucous membranes moist, posterior pharynx boggy without exam exudate. Uvula is midline. Tonsils edematous in 2+. Postnasal drip present. NECK: Neck supple, mild cervical lymphadenopathy, no masses or thyromegaly. CARDIOVASCULAR: Regular rate and rhythm without murmurs, gallops, or rubs. RESPIRATORY: Clear to auscultation. Breath sounds equal bilaterally. No wheezes, rales, or rhonchi. SKIN: warm, Dry, intact with no suspicious lesions or rash, good texture and turgor. NEURO: awake, alert, and oriented to person, place and time. There were no obvious focal neurologic abnormalities. EXTREMITIES: No joint tenderness, effusion, or edema noted. BACK: Nontender without deformity. Course Course Level of Care: Express Care Visit Vital Signs Vital signs: Vital Signs Temperature 99.2 F 08/05/25 13:12 Pulse Rate 82 08/05/25 13:12 Respiratory Rate 18 08/05/25 13:12 Blood Pressure 133/83 08/05/25 13:12 Pulse Oximetry 100 08/05/25 13:12 Temperature 99.2 F 08/05/25 13:12 Pulse Rate 82 08/05/25 13:12 Respiratory Rate 18 08/05/25 13:12 Blood Pressure 133/83 08/05/25 13:12 Pulse Oximetry 100 08/05/25 13:12 [facility] MDM Narrative Medical decision making narrative: Rapid strep negative. A throat culture is pending. Symptoms likely viral in etiology. Patient a 1 time dose of dexamethasone given her symptoms. Discussed physical exam findings. Advised supportive measures and signs/symptoms to go to the ER. Pt is appropriate for outpt treatment and f/u. Differential Diagnosis Differential Diagnosis: Differential diagnostic considerations for upper respiratory infection include upper respiratory infection, croup, otitis media, sinusitis, viral infection, bronchitis, influenza, pharyngitis, strep, uvulitis. Lab Data MDM Lab Attestation statement: I personally reviewed the patient's lab results. Labs: Lab Results 08/05/25 Range/Units 13:24 POC Grp A Strep Screen Negative (Negative) Discharge Plan Discharge Clinical Impression: Upper respiratory infection Qualifiers: URI type: unspecified viral URI Qualified Code(s): J06.9 - Acute upper respiratory infection, unspecified Patient Disposition: Home Condition: Stable Instructions: Antibiotic Form, Upper Respiratory Infection (ED) Additional Instructions: Your rapid strep swab was negative today at [facility]. Take dexamethasone as directed, it is a 1 time dose. You will be notified in a few days if the culture comes back positive for strep, and appropriate antibiotics will be called in for you at that time. Your symptoms are likely due to a viral illness, which is not treated with antibiotics. Viral symptoms can be present for up to 10-14 days. Take Tylenol or ibuprofen as needed for fever or pain. Follow instructions on the bottle. Rest and stay hydrated. Follow up with your PCP in 5-7 days if symptoms are not improving. Go to the ER immediately if you developed chest pain, vomiting, difficulty breathing or swallowing or any other serious concerns. Patient Language: Tajik Prescriptions: New dexamethasone 2 mg tablet 10 mg PO ONCE 1 Days Qty: 5 0RF No Action fluoxetine 10 mg tablet aripiprazole 5 mg tablet drospirenone-ethinyl estradiol 3-0.02 mg tablet 1 tablet PO DAILY Follow-up/Referrals: Doyle,Marsha [Other] Stand Alone Forms: Work/School Release IP Time of Disposition: 13:49
== END 2025-08-05 13:54 | disposition home or self-care (01) ==
DX: J06.9 Acute upper respiratory infection, unspecified (principal); Z79.899 Other long term (current) drug therapy
CPT/HCPCS: 87081; 87880; 99213; G0463